=== PATIENT | female | born 1975 | race Caucasian/White ===

== ENCOUNTER 2020-12-04 21:49 | Inpatient (IN) ==
[~2020-12-04 21:49] MED LIST: Heparin 1,000 UNIT/ML 10 ml (10,000 UNITS) CATHLAB/DIALYSIS ONE; Heparin 2 UNITS/ML 1000 mls IV ONE; Iohexol 350 (CONTRAST) 200 ML MDV IV ONE; Iohexol 350 (CONTRAST) 50 ML SDV IV ONE; Lidocaine 1% VIAL 10 MG/ML VIAL ONE; Midazolam 5 mg/5 ml VIAL 1 mg/ml 5 ml VIAL (5 mg) ONE; VERAPAMIL 2.5 MG/ML 2 ML VIAL ** 5 mg/2 ml ONE; fentaNYL 100 mcg/2 ml 50 MCG/ML VIAL ONE; niCARdipine 0.1MG/ML 200 ML IVPREMIX IV ONE; nitroGLYCERIN DRIP 100 MCG/ML 250 ML BTL ONE
[2020-12-04 22:16] LABS: ABS Basophils 0.1 10^3/ul (0-0.2); ABS Eosinophils 0.7 10^3/ul (0-0.6); ABS Lymphocytes 4.4 10^3/ul (1.0-4.8); ABS Monocytes 0.9 10^3/ul (0-0.8); ABS Neutrophils 12.6 10^3/ul (1.5-7.7); Eosinophil % 3.5 %; Hematocrit 44 % (35-47); Hemoglobin 15.2 g/dL (12.0-16.0); Lymphocyte % 23.4 %; Mean Corpuscular HGB Conc 35 g/dL (31-36); Mean Corpuscular Hemoglobin 34 pg (27-31); Mean Corpuscular Volume 98 fL (80-97); Mean Platelet Volume 8.8 fL (7.4-10.4); Platelet Count 203 10^3/uL (150-450); Red Blood Count 4.48 10^6 /uL (3.70-4.87); Red Cell Distribution Width 14 % (10-15); White Blood Count 18.6 10^3/uL (3.5-10.8)
[2020-12-04 22:24] LABS: Albumin 3.9 g/dL (3.2-5.2); CO2 Carbon Dioxide 23 mmol/L (22-32); Calcium 9.2 mg/dL (8.6-10.3); Chloride 108 mmol/L (101-111); Sodium 139 mmol/L (135-145)
[2020-12-04 22:30] LABS: ALT 17 U/L (7-52); Albumin/Globulin Ratio 1.1 (1-3); Alkaline Phosphatase 82 U/L (35-149); Blood Urea Nitrogen 17 mg/dL (6-24); EGFR Non-African American 88.4 (>60); Globulin 3.4 g/dL (2-4); Glucose 104 mg/dL (70-100); LDL Cholesterol Direct 99 mg/dL; Total Protein 7.3 g/dL (6.4-8.9)
[2020-12-04 22:35] LABS: INR 1.11 (0.86-1.15)
[2020-12-04 22:42] LABS: Anion Gap 8 mmol/L (2-11)
[2020-12-04] MEDS ORDERED: Heparin 1,000 UNIT/ML 10 ml (10,000 UNITS) CATHLAB/DIALYSIS ONE (22:45)
[2020-12-04 22:58] LABS: Activated Partial Thrombo Time 114.8 seconds (26.0-38.0)
[2020-12-04] MEDS ORDERED: Iohexol 350 (CONTRAST) 200 ML MDV IV ONE ×2 (23:05→23:53)
[2020-12-04] MEDS ORDERED: fentaNYL 100 mcg/2 ml 50 MCG/ML VIAL ONE (23:06)
[2020-12-04] MEDS ORDERED: Heparin 2 UNITS/ML 1000 mls 1,000 ML IV ONE (23:09)
[2020-12-04 23:29] LABS: Troponin I 3.42 ng/mL (<0.03)
[2020-12-05] MEDS ORDERED: fentaNYL 100 mcg/2 ml 50 MCG/ML VIAL ONE (00:12)
[2020-12-05] MEDS ORDERED: Atropine 0.1 MG/ML 10 ml SYR (1 mg) ONE (00:22)
[2020-12-05] MEDS ORDERED: NS 0.9% 1000 ml BAG 1,000 ML IV SCH (00:45)
[2020-12-05] MEDS: fentaNYL 100 mcg/2 ml 50 MCG/ML VIAL IV PRN ×2 (01:49→05:22)
[2020-12-05 05:22] LABS: ABS Basophils 0.1 10^3/ul (0-0.2); ABS Eosinophils 0.2 10^3/ul (0-0.6); ABS Lymphocytes 3.2 10^3/ul (1.0-4.8); ABS Monocytes 0.8 10^3/ul (0-0.8); ABS Neutrophils 13.4 10^3/ul (1.5-7.7); Eosinophil % 1.2 %; Hematocrit 42 % (35-47); Hemoglobin 13.7 g/dL (12.0-16.0); Lymphocyte % 18.3 %; Mean Corpuscular HGB Conc 33 g/dL (31-36); Mean Corpuscular Hemoglobin 33 pg (27-31); Mean Corpuscular Volume 99 fL (80-97); Mean Platelet Volume 8.7 fL (7.4-10.4); Nucleated Red Blood Cells % 0.1; Platelet Count 225 10^3/uL (150-450); Red Blood Count 4.19 10^6 /uL (3.70-4.87); Red Cell Distribution Width 14 % (10-15); White Blood Count 17.7 10^3/uL (3.5-10.8)
[2020-12-05 05:39] LABS: Albumin 3.7 g/dL (3.2-5.2); Albumin/Globulin Ratio 1.3 (1-3); Calcium 8.7 mg/dL (8.6-10.3); EGFR African American 137.3 (>60); EGFR Non-African American 113.5 (>60); Globulin 2.9 g/dL (2-4); Potassium 4.2 mmol/L (3.5-5.0); Total Bilirubin 0.3 mg/dL (0.2-1.0); Total Protein 6.6 g/dL (6.4-8.9)
[2020-12-05] MEDS: Aspirin EC 81 mg TAB.EC (enteric coated) PO SCH (09:08)
[2020-12-05] MEDS: Nicotine GUM 4MG FRUIT FLAVOR PO PRN (20:27)
[2020-12-06] MEDS: Nicotine GUM 4MG FRUIT FLAVOR PO PRN ×3 (09:22→17:44)
[2020-12-06] MEDS: Aspirin EC 81 mg TAB.EC (enteric coated) PO SCH (09:22)
[2020-12-07 00:28] LABS: Calcium 9.3 mg/dL (8.6-10.3); EGFR African American 97.5 (>60); EGFR Non-African American 80.6 (>60); Potassium 3.6 mmol/L (3.5-5.0)
[2020-12-07 05:17] LABS: Hematocrit 41 % (35-47); Hemoglobin 13.7 g/dL (12.0-16.0); Mean Corpuscular HGB Conc 34 g/dL (31-36); Mean Corpuscular Hemoglobin 33 pg (27-31); Mean Corpuscular Volume 98 fL (80-97); Mean Platelet Volume 8.5 fL (7.4-10.4); Platelet Count 219 10^3/uL (150-450); Red Blood Count 4.15 10^6 /uL (3.70-4.87); Red Cell Distribution Width 14 % (10-15); White Blood Count 14.6 10^3/uL (3.5-10.8)
[2020-12-07 05:46] LABS: Calcium 9.1 mg/dL (8.6-10.3); EGFR African American 93.4 (>60); EGFR Non-African American 77.2 (>60); Magnesium 2.2 mg/dL (1.9-2.7); Potassium 3.8 mmol/L (3.5-5.0)
[2020-12-07 08:10] VITALS: BP 110/65
[2020-12-07] MEDS: Aspirin EC 81 mg TAB.EC (enteric coated) PO SCH (08:25)
== END 2020-12-07 11:00 | disposition home or self-care (01) | DRG 174 ==
LOC: ED 21:49 → ICU 22:16 → CHICATH 22:16 → ICU 23:37 → MEDTELE 12-06 15:52
PROVIDERS: ADMIT Internal Medicine; ATTEND Internal Medicine

== ENCOUNTER 2022-10-08 11:20 | Observation (INO) ==
[2022-10-08 12:15] LABS: ABS Basophils 0.1 10^3/uL (0.0-0.1); ABS Eosinophils 0.7 10^3/uL (0.0-0.5); ABS Monocytes 0.7 10^3/uL (0.0-0.9); ABS Neutrophils 5.3 10^3/uL (1.5-7.6); Eosinophil % 6.7 %; Hematocrit 47.6 % (35-45); Hemoglobin 16.6 g/dL (11.5-14.3); Lymphocyte % 30.8 %; Mean Corpuscular Hgb Conc 34.8 g/dL (31-36); Mean Corpuscular Volume 97.8 fL (80-97); Mean Platelet Volume 9.1 fL (7.5-11.2); Platelet Count 199 10^3/uL (150-450); Red Blood Count 4.87 10^6/uL (3.63-4.92); Red Cell Distribution Width 14.8 % (12-17); White Blood Count 9.8 10^3/uL (3.8-11.8)
[2022-10-08 12:22] LABS: INR 1.14 (0.88-1.18)
[2022-10-08] MEDS ORDERED: Morphine 15 mg TAB (NF) PO ONE (12:27)
[2022-10-08] MEDS ORDERED: Carvedilol 12.5 MG TAB (NF) PO ONE (12:29)
[2022-10-08 12:46] LABS: Albumin 3.6 g/dL (3.2-5.2); Albumin/Globulin Ratio 1.2 (1-3); Calcium 9.2 mg/dL (8.6-10.3); Creatinine, Serum 0.78 mg/dL (0.51-0.95); Globulin 3.1 g/dL (2-4); Potassium 3.4 mmol/L (3.5-5.0); Total Bilirubin 0.5 mg/dL (0.2-1.0); Total Protein 6.7 g/dL (6.4-8.9)
[2022-10-08] MEDS ORDERED: Potassium Chlor 20 meq TAB.ER PO ONE (13:05)
[2022-10-08] MEDS ORDERED: Morphine ORAL.SOLN 10 mg 2 mg/ml UDC 5 ml (10 mg) PO ONE (13:30)
[2022-10-08] MEDS ORDERED: Ondansetron 4 mg VIAL 2 MG/ML 2 ml VIAL IV PRN (13:31)
[2022-10-08 13:49] LABS: High Sensitivity Troponin 1 Hr 6 pg/mL (<15)
[2022-10-08] MEDS ORDERED: Morphine ORAL CONCENTRATE 5 MG/0.25 ML ORAL.SYRIN SL ONE ×2 (14:27→22:00)
[2022-10-08] MEDS: Enoxaparin 40 MG/0.4 ML SYR SUBCUT SCH (14:42)
[2022-10-08] MEDS ORDERED: Iohexol 350 (CONTRAST) 500 ML MDV IV ONE (14:51)
[2022-10-08] MEDS ORDERED: Morphine ER 15 mg TAB ** extended release PO SCH (15:00)
[2022-10-08] MEDS ORDERED: Sulfur Hexaflouride MICROSPHR 25 MG VIAL ONE (15:51)
[2022-10-08] MEDS: Nicotine GUM 4MG FRUIT FLAVOR PO PRN (22:22)
[2022-10-09] MEDS: oxyCODONE/Acetamin 5/325 mg TAB PO PRN ×2 (02:34→08:47)
[2022-10-09] MEDS ORDERED: Nicotine PATCH 21 MG/24 HR PATCH TRANSDERM SCH (03:00)
[2022-10-09 06:13] LABS: ABS Eosinophils 0.6 10^3/uL (0.0-0.5); ABS Lymphocytes 2.8 10^3/uL (1.0-4.8); ABS Monocytes 0.7 10^3/uL (0.0-0.9); ABS Neutrophils 4.5 10^3/uL (1.5-7.6); ABS Nucleated RBC 0.01 10^3/ul; Eosinophil % 6.4 %; Hematocrit 43.6 % (35-45); Hemoglobin 14.9 g/dL (11.5-14.3); Lymphocyte % 32.2 %; Mean Corpuscular Hemoglobin 33.3 pg (27-33); Mean Corpuscular Hgb Conc 34.2 g/dL (31-36); Mean Corpuscular Volume 97.4 fL (80-97); Mean Platelet Volume 8.9 fL (7.5-11.2); Nucleated Red Blood Cells % 0.1 /100 WBC (0.0-0.4); Platelet Count 175 10^3/uL (150-450); Red Blood Count 4.48 10^6/uL (3.63-4.92); Red Cell Distribution Width 14.4 % (12-17); White Blood Count 8.6 10^3/uL (3.8-11.8)
[2022-10-09 06:29] VITALS: BP 107/63
[2022-10-09 06:36] LABS: Calcium 8.5 mg/dL (8.6-10.3); Creatinine, Serum 0.82 mg/dL (0.51-0.95); HDL Cholesterol 16.7 mg/dL; Magnesium 1.8 mg/dL (1.9-2.7); Potassium 3.8 mmol/L (3.5-5.0); eGFR CKD-EPI 90.4 (>60)
[2022-10-09] MEDS ORDERED: Morphine ER 15 mg TAB ** extended release PO SCH (08:00)
[2022-10-09] MEDS: Nicotine GUM 4MG FRUIT FLAVOR PO PRN (08:48)
[2022-10-09] MEDS ORDERED: Aspirin EC 81 mg TAB.EC (enteric coated) PO SCH (09:00)
[2022-10-09] MEDS ORDERED: Magnesium Sulfate IV 1GM/100ML 1 GM/100 ML BAG IV ONE (10:27)
[2022-10-09] MEDS: Enoxaparin 40 MG/0.4 ML SYR SUBCUT SCH (12:47)
== END 2022-10-09 13:00 | disposition left against medical advice (07) ==
LOC: ED 11:20 → EDHOLD 13:31 → INTOOBSV 13:31 → MEDTELE 22:15
PROVIDERS: ADMIT Hospitalist; ATTEND Internal Medicine